=== PATIENT | male | born 1975 ===

== ENCOUNTER 2020-06-26 21:06 | Emergency (ER) | payer BC ==
--- NOTE | 2020-06-26 21:08 | EDM.PDOC ---
<Mickey Rush - Last Filed: 06/26/20 23:11> ED HPI GENERAL MEDICAL PROBLEM - General Chief Complaint: Abdominal Pain Stated Complaint: ABDOMINAL PAIN Time Seen by Provider: 06/26/20 21:07 - Related Data Allergies Allergy/AdvReac Type Severity Reaction Status Date / Time aspirin Allergy Other Verified 06/26/20 21:26 Home Meds: Home Meds Amoxicillin/Clavulanate K [Augmentin 875-125 MG] 1 tab PO BID #20 tablet 06/26/20 [Rx] Pravastatin [Pravachol] 40 mg PO DAILY 06/26/20 [History] metFORMIN [Glucophage XR] 500 mg PO BIDMEALS 06/26/20 [History] Course - Re-Assessments/Exams Free Text/Narrative Re-Assessment/Exam: 06/26/20 21:45 Patient care transitioned to mi to follow-up additional labs and CT imaging. Patient reports improvement in symptoms s/p toradol. 06/26/20 23:12 CT imaging is remarkable for sigmoid diverticulitis. This fits patient's clinical symptoms. Will discharge with Augmentin and primary care physician follow-up. Departure - Departure Time of Disposition: 23:12 Disposition: Home, Self-Care 01 Condition: Good Clinical Impression: Diverticulitis - Discharge Information Prescriptions: Amoxicillin/Clavulanate K [Augmentin 875-125 MG] 1 tab PO BID #20 tablet Instructions: Diverticulitis Referrals: Brady Veliz MD [Primary Care Provider] - Forms: ED Department Discharge Additional Instructions: The following information is given to patients seen in the emergency department who are being discharged to home. This information is to outline your options for follow-up care. We provide all patients seen in our emergency department with a follow-up referral. The need for follow-up, as well as the timing and circumstances, are variable depending upon the specifics of your emergency department visit. If you don't have a primary care physician on staff, we will provide you with a referral. We always advise you to contact your personal physician following an emergency department visit to inform them of the circumstance of the visit and for follow-up with them and/or the need for any referrals to a consulting specialist. The emergency department will also refer you to a specialist when appropriate. This referral assures that you have the opportunity for follow-up care with a specialist. All of these measure are taken in an effort to provide you with optimal care, which includes your follow-up. Under all circumstances we always encourage you to contact your private physician who remains a resource for coordinating your care. When calling for follow-up care, please make the office aware that this follow-up is from your recent emergency room visit. If for any reason you are refused follow-up, please contact the [facility] Emergency Department at and asked to speak to the emergency department charge nurse. Please follow up with your primary care physician. If you do not have a primary care physician, see below: [facility] [address] [place] [id number] [facility] [address] [place] [id number] [facility] [address] [address] <Shaina Oliver E - Last Filed: 06/30/20 09:59> ED HPI GENERAL MEDICAL PROBLEM - General Source of Information: Reports: Patient History Limitations: Reports: No Limitations - History of Present Illness INITIAL COMMENTS - FREE TEXT/NARRATIVE: HISTORY AND PHYSICAL: History of present illness: Patient is a 45-year-old male who presents to the emergency room with lower quadrant pain which started around 4 PM this afternoon. The patient states he was sitting at his desk when the pain started. He does not appreciate any modifiers. The patient says he has never had this type of pain before. He had an [employer] sandwich for lunch. Patient denies any fever, chills, headache, change in vision, syncope or near syncope. Denies any chest pain, back pain, shortness of breath or cough. Denies any nausea, vomiting, diarrhea, constipation or dysuria. Has not noted any blood in urine or stool. Patient has been eating and drinking appropriately. Review of systems: As per history of present illness and below otherwise all systems reviewed and negative. Past medical history: As per history of present illness and as reviewed below otherwise noncontributory. Surgical history: As per history of present illness and as reviewed below otherwise noncontributory. Social history: See social history for further information Family history: As per history of present illness and as reviewed below otherwise noncontributory. Physical exam: General: Well developed and well nourished. Alert and orientated x 3. Nontoxic in appearance and in mild distress. Vital signs are stable and have been reviewed by me. Nursing notes were reviewed. HEENT: Atraumatic, normocephalic, pupils equal and reactive bilaterally, negative for conjunctival pallor or scleral icterus, mucous membranes moist, neck supple, nontender, trachea midline. No drooling or trismus noted. No meningeal signs. No hot potato voice noted. Lungs: Clear to auscultation bilaterally. No wheezes, rales, or rhonchi. Chest nontender. Normal work of breathing, no accessory muscles used. Heart: S1S2, regular rate and rhythm without overt murmur, gallops, or rubs. No JVD. No peripheral edema Abdomen: Round and tender LLQ. Normoactive bowel sounds. Negative for masses or costovertebral tenderness. Skin: Intact, warm, dry. No lesions or rashes noted. Hematologic: No petechiae or purpra. Mucosa appropriate color and normal nail bed color and refill. Extremities: Atraumatic, moves all extremities per self without difficulty or deficits, negative for cords or calf pain. Neurovascular unremarkable. Neuro: Awake, alert, oriented. Cranial nerves II through XII unremarkable. Cerebellum unremarkable. Motor and sensory unremarkable throughout. Exam nonfocal. Psychiatric: Mood and affect are appropriate. Normal thought process. Answering questions appropriately. Notes: *This patient was seen and evaluated during the 2019 SARS-CoV-2 novel coronavirus pandemic period. Community viral transmission is ongoing at time of this encounter and the emergency department is operating under pandemic response procedures. The patient is agreeable to the labs, CT, fluids, and pain medication with. Patient does have a leukocytosis, CT pending. Dr Carrillo was informed of this patient and with disposition/treat accordingly. Diagnostics: CBC, CMP, UA, CT Therapeutics: IV fluids, pain medication Definitive disposition and diagnosis as appropriate pending reevaluation and review of above. llq Pain Score (Numeric/FACES): 7 Past Medical History - Past Health History Medical/Surgical History: Denies Medical/Surgical History Social & Family History - Family History Family Medical History: No Pertinent Family History ED ROS GENERAL - Review of Systems Review Of Systems: Comprehensive ROS is negative, except as noted in HPI. ED EXAM, GI/ABD - Physical Exam Exam: See Below (See dictation) Course - Vital Signs Last Recorded V/S: Last Vital Signs Temp 97.5 F 06/26/20 21:18 Pulse 98 06/26/20 21:18 Resp 18 06/26/20 21:18 BP 176/102 H 06/26/20 21:18 Pulse Ox 97 06/26/20 21:18 - Orders/Labs/Meds Labs: Laboratory Tests 06/26/20 06/26/20 06/26/20 Range/Units 21:15 21:25 21:25 WBC 13.47 H (4.0-11.0) K/uL RBC 5.56 (4.50-5.90) M/uL Hgb 17.4 H (13.0-17.0) g/dL Hct 49.5 (38.0-50.0) % MCV 89.0 (80.0-98.0) fL MCH 31.3 (27.0-32.0) pg MCHC 35.2 (31.0-37.0) g/dL RDW Std Deviation 40.2 (28.0-62.0) fl RDW Coeff of Maxwell 12 (11.0-15.0) % Plt Count 305 (150-400) K/uL MPV 9.90 (7.40-12.00) fL Neut % (Auto) 65.8 (48.0-80.0) % Lymph % (Auto) 22.3 (16.0-40.0) % [place] % (Auto) 10.2 (0.0-15.0) % Eos % (Auto) 1.4 (0.0-7.0) % Baso % (Auto) 0.3 (0.0-1.5) % Neut # (Auto) 8.9 H (1.4-5.7) K/uL Lymph # (Auto) 3.0 H (0.6-2.4) K/uL [place] # (Auto) 1.4 H (0.0-0.8) K/uL Eos # (Auto) 0.2 (0.0-0.7) K/uL Baso # (Auto) 0.0 (0.0-0.1) K/uL Nucleated RBC % 0.0 /100WBC Nucleated RBCs # 0 K/uL Sodium 137 (136-148) mmol/L Potassium 3.5 (3.5-5.1) mmol/L Chloride 102 (98-107) mmol/L Carbon Dioxide 25.2 (21.0-32.0) mmol/L BUN 13 (7.0-18.0) mg/dL Creatinine 1.2 (0.8-1.3) mg/dL Est Cr Clr Drug Dosing 69.41 mL/min Estimated GFR (MDRD) > 60.0 ml/min Glucose 101 (74-106) mg/dL Calcium 8.5 (8.5-10.1) mg/dL Total Bilirubin 0.4 (0.2-1.0) mg/dL AST 8 L (15-37) IU/L ALT 27 (14-63) IU/L Alkaline Phosphatase 86 (46-116) U/L Total Protein 7.9 (6.4-8.2) g/dL Albumin 3.9 (3.4-5.0) g/dL Globulin 4.0 (2.6-4.0) g/dL Albumin/Globulin Ratio 1.0 (0.9-1.6) Urine Color YELLOW Urine Appearance CLEAR Urine pH 6.5 (5.0-8.0) Ur Specific [place] 1.010 (1.001-1.035) Urine Protein NEGATIVE (NEGATIVE) mg/dL Urine Glucose (UA) NEGATIVE (NEGATIVE) mg/dL Urine Ketones NEGATIVE (NEGATIVE) mg/dL Urine Occult Blood NEGATIVE (NEGATIVE) Urine Nitrite NEGATIVE (NEGATIVE) Urine Bilirubin NEGATIVE (NEGATIVE) Urine Urobilinogen 0.2 (<2.0) EU/dL Ur Leukocyte Esterase NEGATIVE (NEGATIVE) Meds: Medications Discontinued Medications Generic Name Dose Route Start Last Admin Trade Name Freq PRN Reason Stop Dose Admin Amoxicillin/Clavulanate Potassium 1 tab 06/26/20 23:14 06/26/20 23:27 Amoxicillin/Clavulanate K 875-125 Mg Tab PO 06/26/20 23:15 1 tab ONETIME ONE Administration Sodium Chloride 1,000 mls @ 999 mls/hr 06/26/20 21:21 03/11/21 21:27 Normal Saline IV 06/26/20 22:21 999 mls/hr STAT ONE Administration Iopamidol 100 ml 06/26/20 22:12 06/26/20 22:12 Iopamidol 755 Mg/Ml 500 Ml Multipack Bottle IVPUSH 06/26/20 22:13 100 ml ONETIME STA Administration Ketorolac Tromethamine 30 mg 06/26/20 21:21 06/26/20 21:27 Ketorolac 30 Mg/Ml Sdv IVPUSH 06/26/20 21:22 30 mg ONETIME ONE Administration
[2020-06-26] MEDS ORDERED: Ketorolac 30 MG/ML SDV IVPUSH ONE (21:21)
[2020-06-26] MEDS ORDERED: Sodium Chloride 0.9% 1,000 ML IV ONE (21:21)
[2020-06-26 21:52] LABS: BLOOD UREA NITROGEN,BUN 13 mg/dL (7.0-18.0); CARBON DIOXIDE,CO2 25.2 mmol/L (21.0-32.0); CHLORIDE,CL 102 mmol/L (98-107); GLUCOSE RANDOM 101 mg/dL (74-106); POTASSIUM,K 3.5 mmol/L (3.5-5.1); SODIUM,NA 137 mmol/L (136-148)
[2020-06-26] MEDS ORDERED: Iopamidol 755 MG/ML 500 ML Multipack Bottle IVPUSH STA (22:12)
--- NOTE | 2020-06-26 22:58 | CT ---
INDICATION: Left lower quadrant pain TECHNIQUE: CT abdomen and pelvis acquired with IV contrast. 100 mL of Isovue 370. COMPARISON: None available FINDINGS: Lower chest: Unremarkable. Liver: A subcentimeter posterior right hepatic low-density lesion on image 72, not well evaluated. Spleen: Unremarkable. Pancreas: Unremarkable. Gallbladder and bile ducts: Unremarkable. Adrenal glands: A 1.8 x 1.6 cm right adrenal nodule, containing a small focus of decreased attenuation on image 59. Kidneys: No hydronephrosis. A 3 mm linear nonobstructive left renal calcification. Mild bilateral perirenal changes, nonspecific. GI tract: A contracted stomach, limiting evaluation. No mechanical bowel obstruction. A normal appendix. Left colonic diverticulosis. Focal wall thickening of a short segment of the proximal sigmoid colon with adjacent stranding, centered at a posterior diverticulum, consistent with diverticulitis. Vascular structures: Minor early atherosclerotic changes. Lymph nodes: Unremarkable. Miscellaneous: No significant free fluid or free air. Pelvic Organs: A mildly enlarged prostate, slightly protruding into the bladder base. Prominent seminal vesicles, which could be physiologic, demonstrating curvilinear peripheral calcifications. Bones: Unremarkable for age. IMPRESSION: Proximal sigmoid diverticulitis. 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 Follow-up with adrenal CT or MRI evaluation. A subcentimeter right hepatic low-density lesion, not well evaluated. A small nonobstructive left renal calcification. A mildly enlarged prostate, slightly protruding into the bladder base. Please note that all CT scans at this facility use dose modulation, iterative reconstruction, and/or weight-based dosing when appropriate to reduce radiation dose to as low as reasonably achievable. Dictated by Camilo Anderson MD @ Jun 26 2020 10:39PM Signed by Dr. Camilo Anderson @ Jun 26 2020 10:56PM
[2020-06-26] MEDS ORDERED: Amoxicillin/Clavulanate K 875-125 MG Tab PO ONE (23:14)
== END 2020-06-26 23:31 | disposition home or self-care (01) ==
LOC: MW.ED 21:06
DX: K57.32 Diverticulitis of large intestine without perforation or abscess without bleeding (principal); Z88.6 Allergy status to analgesic agent; Z79.84 Long term (current) use of oral hypoglycemic drugs; Z79.899 Other long term (current) drug therapy
CPT/HCPCS: 36415; 74177; 80053; 81003; 85025; 96374; 99284; A9270; J1885; J7030; Q9967

== ENCOUNTER 2022-10-20 09:16 | Emergency (ER) | payer BC ==
[2022-10-20] MEDS ORDERED: diphenhydrAMINE 50 MG/ML SDV IVPUSH ONE (09:31)
[2022-10-20] MEDS ORDERED: Sodium Chloride 0.9% 1,000 ML IV ONE (09:31)
[2022-10-20] MEDS ORDERED: Famotidine 20 MG/2 ML SDV IVPUSH ONE (09:31)
[2022-10-20] MEDS ORDERED: methylPREDNISolone Sodium Succinate 125 MG/2 ML SDV IVPUSH ONE (09:31)
[2022-10-20 09:39] LABS: BASOPHILS PERCENT AUTO 0.3 % (0.0-1.5); EOSINOPHILS ABSOLUTE AUTO 0.1 K/uL (0.0-0.7); EOSINOPHILS PERCENT AUTO 1.8 % (0.0-7.0); HEMOGLOBIN 14.6 g/dL (13.0-17.0); LYMPHOCYTES ABSOLUTE AUTO 2.3 K/uL (0.6-2.4); LYMPHOCYTES PERCENT AUTO 30.4 % (16.0-40.0); MEAN CORPUSCULAR HEMOGLOBIN 30.5 pg (27.0-32.0); MEAN CORPUSCULAR HGB CONC 34.8 g/dL (31.0-37.0); MEAN CORPUSCULAR VOLUME 87.7 fL (80.0-98.0); MONOCYTES ABSOLUTE AUTO 0.7 K/uL (0.0-0.8); MONOCYTES PERCENT AUTO 9.5 % (0.0-15.0); NEUTROPHILS ABSOLUTE AUTO 4.4 K/uL (1.4-5.7); NRBC ABSOLUTE 0 K/uL; PLATELET COUNT,PLT 302 K/uL (150-400); RED BLOOD CELL COUNT 4.79 M/uL (4.50-5.90); WHITE BLOOD CELL COUNT,WBC 7.59 K/uL (4.0-11.0)
[2022-10-20 10:51] LABS: A/G RATIO 0.8 (0.9-1.6); ALBUMIN 3.2 g/dL (3.4-5.0); BILIRUBIN TOTAL 0.6 mg/dL (0.2-1.0); CALCIUM 8.7 mg/dL (8.5-10.1); CARBON DIOXIDE,CO2 25.4 mmol/L (21.0-32.0); CREATININE 0.9 mg/dL (0.8-1.3); EST CRCL DRUG DOSING (CG) 90.58 mL/min; POTASSIUM,K 3.8 mmol/L (3.5-5.1); PROTEIN TOTAL,TP 7.2 g/dL (6.4-8.2)
== END 2022-10-20 11:23 | disposition home or self-care (01) ==
LOC: MW.ED 09:16
DX: T78.3XXA Angioneurotic edema, initial encounter (principal); E78.5 Hyperlipidemia, unspecified; Z88.6 Allergy status to analgesic agent; Z88.1 Allergy status to other antibiotic agents; Z88.8 Allergy status to other drugs, medicaments and biological substances
CPT/HCPCS: 36415; 80053; 85025; 96374; 96375; 99283; J1200; J2930; J3490; J7030; 99285